=== PATIENT | female | born 1935 | race Caucasian/White ===

== ENCOUNTER 2019-05-27 14:31 | Emergency (ER) | payer MEDICARE ==
[2019-05-27 14:50] VITALS: BP 133/44
== END 2019-05-27 15:24 | disposition left against medical advice (07) ==
LOC: UCCORT 14:31
DX: S69.91XA Unspecified injury of right wrist, hand and finger(s), initial encounter (principal); X58.XXXA Exposure to other specified factors, initial encounter; Y92.9 Unspecified place or not applicable; Z53.21 Procedure and treatment not carried out due to patient leaving prior to being seen by health care provider
CPT/HCPCS: 99211; G0463